=== PATIENT | male | born 1995 | race Caucasian/White ===

== ENCOUNTER 2024-04-14 10:21 | Emergency (ER) | payer SELFPAY ==
[2024-04-14 10:37] VITALS: BP 143/75; PULSE 70; RESP 16; TEMP 36.4; O2SAT 100
--- NOTE | 2024-04-14 11:21 | ED.DENTAL ---
HPI - Dental/Oral General Chief complaint: Dental/Oral Stated complaint: tooth pain Source: patient Mode of arrival: ambulatory History of Present Illness HPI Narrative: 29-year-old male presented for complaint of left upper dental pain and facial swelling for about 2 days. Says the tooth is broken at that site for a while. Has taken ibuprofen without significant improvement. He does not have dentist. Denies nausea, vomiting diarrhea or fever. MD Complaint: tooth pain Related Data Allergies Allergy/AdvReac Type Severity Reaction Status Date / Time AMOXICILLIN Allergy Unknown Uncoded 11/25/02 13:30 NKFA Allergy Unknown Uncoded 11/25/02 13:30 Review of Systems Review of Systems: CONSTITUTIONAL: Denies body aches, fever, chills ENT: Denies rhinorrhea, congestion, sore throat, or otalgia. Reports dental pain CARDIOVASCULAR: Denies chest pain, palpitations RESPIRATORY: Denies cough or dyspnea. SKIN: Denies rash, itching, or wounds. MUSCULOSKELETAL: Denies myalgia. NEUROLOGIC: Denies headache, numbness, tingling, or weakness. PMFSH Comments At time of signature, I have reviewed and agree with nursing past medical, surgical, social and family history unless otherwise noted. Please see nursing chart for further information. There is no relevant family history pertinent to the presenting complaint Exam Narrative: GENERAL: Appears in pain; no acute distress. HEAD: Normocephalic, atraumatic. EYES: EOMI. No redness or drainage. Conjunctivae normal. ENT: Dental pain location of #15, took is broken, surrounding gum is erythematous; mild swelling noted to the face. Mucous membranes pink and moist. TMs normal bilaterally. Throat normal. no dysphagia, odynophagia, dysphonia, or dyspnea. No uvular deviation or soft palate edema. NECK: Normal AROM. No lymphadenopathy. no induration below mandible, no neck pain. CHEST: No respiratory distress. Clear to auscultation. HEART: Regular rate and rhythm. No murmur appreciated. SKIN: Warm, dry, Normal skin turgor. NEURO: No focal deficits. Alert and oriented x3. Gait steady. Course Course Emergency Course: Patient is aware of diagnosis, understands and agrees to treatment plan. Anticipatory guidance given. Patient agrees to follow-up as directed and is aware of reasons to seek care at the emergency department. Portions of this record may have been created with voice recognition software Level of Care: Express Care Visit Vital Signs Vital signs: Vital Signs Temperature 97.5 F L 04/14/24 10:37 Pulse Rate 70 04/14/24 10:37 Respiratory Rate 16 04/14/24 10:37 Blood Pressure 143/75 H 04/14/24 10:37 Pulse Oximetry 100 04/14/24 10:37 Oxygen Delivery Room Air 04/14/24 10:37 Temperature 97.5 F L 04/14/24 10:37 Pulse Rate 70 04/14/24 10:37 Respiratory Rate 16 04/14/24 10:37 Blood Pressure 143/75 H 04/14/24 10:37 Pulse Oximetry 100 04/14/24 10:37 Oxygen Delivery Room Air 04/14/24 10:37 MDM - Dental/Oral MDM Narrative Medical decision making narrative: Patients pain and complaint coupled with physical findings are consistent with dental abscess. There are no focal signs of space occupying lesions that are compromising to the airway; Patient is non-toxic appearing. The floor of the mouth is soft with no signs of Jeffrey's Angina; Patient is without trismus or drooling and able to swallow secretions. Discussed physical exam findings. Advised supportive measures and signs/symptoms to go to the ER. Pt is appropriate for outpt treatment and f/u. Discharge Plan Discharge Clinical Impression: Dental abscess Patient Disposition: Home, Self-Care Condition: Stable Instructions: Antibiotic Form, Dental Abscess (ED) Additional Instructions: Take antibiotic as directed May apply heat or ice to the face Gentle brushing and flossing. Rinse mouth with warm salt water at least 2 times a day. Alternate Tylenol and ibuprofen as needed for pain Follow-up with the dentist as soon as possible--see the list provided go to the ER for worsening symptoms or concerns Prescriptions: New clindamycin HCl [Cleocin HCl] 300 mg capsule 300 mg PO Q8H 10 Days Qty: 30 0RF ibuprofen 800 mg tablet 800 mg PO TID PRN (Reason: pain) Qty: 15 0RF lidocaine HCl [Lidocaine Viscous] 2 % solution 1 applic mucous membrane TID PRN (Reason: pain) Qty: 100 0RF Rx Instructions: apply with cotton swab to site of pain Follow-up/Referrals: PHYSICIAN,MODELING DIRECTOR [Primary Care Provider] - Stand Alone Forms: Work/School Release IP
== END 2024-04-14 11:32 | disposition home or self-care (01) ==
PROVIDERS: Emergency Provider Nurse Practitioner Family
DX: K04.7 Periapical abscess without sinus (principal)
CPT/HCPCS: 99203; G0463

== ENCOUNTER 2024-11-06 10:12 | Emergency (ER) | payer SELFPAY ==
[2024-11-06 10:24] VITALS: BP 134/68; PULSE 77; RESP 16; TEMP 36.4; O2SAT 100
--- NOTE | 2024-11-06 10:58 | ED.URI ---
HPI - URI/Sore Throat General Chief Complaint: Upper Respiratory Infection Stated Complaint: Chest Congestion,Dizziness/Need Dr Note Time Seen by Provider: 11/06/24 10:40 Source: patient and RN notes reviewed Mode of arrival: ambulatory Limitations: no limitations History of Present Illness HPI Narrative: 29-year-old male presents Express Care complaining of upper respiratory symptoms and cough for 1 week. Patient reports having fevers, cough, congestion, headaches, runny nose, and wheezing. Patient says he has been taking DayQuil and NyQuil with some relief but says he is not getting much better. Patient denies feeling short of breath or having any chest pain. Patient said 4 days ago he had an episode of dizziness while working reporting that he felt like he was in motion but surely subsided. Patient denies any lightheadedness, syncope, nausea, vomiting, diarrhea, body aches, chills, or any other symptoms. Patient denies any significant past medical history. Related Data Home Medications ?Medication ?Instructions ?Recorded ?Confirmed ?Last Taken ?Type No Home Medications 11/06/24 11/06/24 Unknown History Allergies Allergy/AdvReac Type Severity Reaction Status Date / Time amoxicillin Allergy Unknown Verified 11/06/24 10:26 Review of Systems Review of Systems: CONSTITUTIONAL: Positive for fevers. Negative for chills, body aches, or sweats. EYES: Denies visual changes, redness, or discharge. ENT: Positive for rhinorrhea, congestion. Negative for sore throat, or otalgia. CARDIOVASCULAR: Denies chest pain, palpitations, or edema. RESPIRATORY: Positive for cough and wheezing. Negative for dyspnea. GASTROINTESTINAL: Denies abdominal pain, nausea, vomiting, or diarrhea. GENITOURINARY: Denies dysuria or hematuria. SKIN: Denies rash or itching. MUSCULOSKELETAL: Denies back pain, joint pain, or myalgia. NEUROLOGIC: Positive for headache. Negative for numbness, or weakness. PSYCHIATRIC: Denies anxiety or depression. All other systems reviewed are negative, except as documented in HPI. PMFSH Comments At the time of my signature, I reviewed and agree with the nursing past medical, surgical, social, and family history. There is no relevant family history pertinent to the patient complaint. Exam Narrative: GENERAL: This is a well-nourished, well-developed adult, in no apparent distress. They are non ill-appearing, nontoxic appearing. Patient is afebrile. HEAD: normocephalic, atraumatic. EYES: Sclera clear/white. Vision is grossly intact. Conjunctiva normal bilaterally. Extraocular movements intact. EARS: External ears normal, auditory canals clear and without drainage, TMs without erythema or perforation. Hearing grossly intact. NOSE: External nose normal with no obvious nasal discharge, nasal turbinates erythematous, no rhinorrhea. THROAT: Mucous membranes moist, posterior pharynx without redness or swelling, or exudate. Uvula is midline. Postnasal drip present. NECK: Neck supple, non-tender without lymphadenopathy, masses or thyromegaly. CARDIOVASCULAR: Regular rate and rhythm without murmurs, gallops, or rubs. RESPIRATORY: End expiratory wheezes heard at the posterior base of the lungs bilaterally and end-expiratory wheezes heard left middle posterior lobe of the lung. Lungs otherwise clear throughout. Breath sounds equal bilaterally. No rales, or rhonchi. Respiratory rate normal, respiratory effort nonlabored, no respiratory distress, no accessory muscle use or retractions. SKIN: warm, Dry, intact with no suspicious lesions or rash, good texture and turgor. NEURO: awake, alert, and oriented to person, place and time. There were no obvious focal neurologic abnormalities. EXTREMITIES: No joint tenderness, effusion, or edema noted. BACK: Nontender without deformity. Course Course Emergency Course: Portions of this record may have been created with voice recognition software Level of Care: Express Care Visit Vital Signs Vital signs: Vital Signs Temperature 97.5 F L 11/06/24 10:24 Pulse Rate 77 11/06/24 10:24 Respiratory Rate 16 11/06/24 10:24 Blood Pressure 134/68 11/06/24 10:24 Pulse Oximetry 100 11/06/24 10:24 Oxygen Delivery Room Air 11/06/24 10:24 Temperature 97.5 F L 11/06/24 10:24 Pulse Rate 77 11/06/24 10:24 Respiratory Rate 16 11/06/24 10:24 Blood Pressure 134/68 11/06/24 10:24 Pulse Oximetry 100 11/06/24 10:24 Oxygen Delivery Room Air 11/06/24 10:24 MDM - URI/Sore Throat MDM Narrative Medical decision making narrative: Patient likely has purulent bronchitis given length of symptoms. Offered patient chest x-ray to exclude pneumonia however patient is self pay and does not want bill for the imaging and declined further imaging. Will treat clinically with prednisone and azithromycin. Also will prescribe albuterol inhaler as needed for wheezing or shortness of breath. Discussed physical exam findings. Advised supportive measures and signs/symptoms to go to the ER. Pt is appropriate for outpt treatment and f/u. Differential Diagnosis Differential diagnosis: Likely sinusitis, viral infection, bronchitis and other (Atypical pneumonia) Discharge Plan Discharge Clinical Impression: Acute purulent bronchitis Patient Disposition: Home Condition: Stable Instructions: Antibiotic Form, Acute Bronchitis (ED) Additional Instructions: Take azithromycin as directed. Take prednisone as directed. Take in the morning with food. Please see albuterol inhaler as needed for wheezing or shortness of breath. Tylenol ibuprofen as needed for pain or fevers. Symptomatic treatment includes: rest, fluids, and increase humidity of the air at home. Follow up with your primary care provider as needed in 1 week Go to the ER for worsening symptoms, shortness of breath, difficulty breathing, chest pain, fevers, nausea vomiting, or any other concerns Patient Language: Montserratian Prescriptions: New azithromycin 250 mg tablet See Rx Instructions .ROUTE .COMPLEX Qty: 6 0RF Rx Instructions: For 250 mg dose pack: take 500 mg today (day 1), then 250 mg for 4 days (days 2-5) prednisone 20 mg tablet 40 mg PO DAILY 5 Days Qty: 10 0RF albuterol sulfate [Ventolin HFA] 90 mcg/actuation HFA aerosol inhaler 2 puff inhalation QID PRN (Reason: shortness of breath or wheezing) Qty: 8.5 0RF No Action No Home Medications Follow-up/Referrals: PHYSICIAN,WOOD TECHNOLOGIST [Primary Care Provider] - Stand Alone Forms: Work/School Release IP Time of Disposition: 10:49
--- OUTSIDE RECORDS SUMMARY | 2024-11-06 11:12 | XMS_ITS | Clinical Summary ---
Author Organization [facility] [employer] Address [address] [place] [address] Care Team Providers Care Special Education Resource Room Teacher Name Role Phone Jake Norman MD Primary Care Provider [phone] Source Comments [employer],non-owned Affiliates and Associated Physician Practices is amultiple site organization consisting of ambulatory clinics and hospital sitesin [place], [place], [place] and [place]. This disclosure is being madepursuant to the Care Everywhere program and may not contain all information available regarding this patient. Last updated 18.G3 Allergies No known active allergies Medications * Be aware that medications may not be up to date on this document. Alwaysverify current medications with the patient. predniSONE (DELTASONE) 20 MG tablet Take 3 a day x 3 days, then 2 a day x 3 days then 1 a day x 5 days 20 tablet 12/14/2018 Active triamcinolone acetonide (KENALOG) 0.1 % cream Apply to affected area 2 times daily 30 g 1 12/14/2018 Active Social History Tobacco Use Types Packs/Day Years Used Date Smoking Tobacco: Former Smokeless Tobacco: Never Sex and Gender Information Value Date Recorded Sex Assigned at Not on file Legal Sex Male 7:02 AM CDT Gender Identity Not on file Sexual Orientation Not on file Last Filed Vital Signs Vital Sign Reading Time Taken Comments Blood Pressure 110/70 12/14/2018 10:21 AM CDT Pulse 45 12/14/2018 10:21 AM CDT Temperature 36.9 C (98.5 F) 12/14/2018 10:21 AM CDT Respiratory Rate 16 12/14/2018 10:21 AM CDT Oxygen Saturation 97% 12/14/2018 10:21 AM CDT Inhaled Oxygen Concentration - - Weight 83.9 kg (185 lb) 12/14/2018 10:21 AM CDT Height 188 cm (6' 2) 12/14/2018 10:21 AM CDT Body Mass Index 23.75 12/14/2018 10:21 AM CDT Plan of Treatment Health Maintenance Due Date Last Done Comments HIV SCREENING 02/19/2008 HEPATITIS C SCREENING 02/14/2011 DTAP/TDAP/TD VACCINES (1 - Tdap) 02/19/2012 HEPATITIS B VACCINE (1 of 3 - 19+ 3-dose series) 02/19/2012 COVID-19 VACCINE (1 - 2023-2 5 season) 2024 DEPRESSION SCREENING 06/04/2024 INFLUENZA VACCINE (Season Ended) 2025 ZOSTER VACCINE (1 of 2) 2043 HIB VACCINE Aged Out No longer eligi ble based on patient's age to complete this topic HPV VACCINE Aged Out No longer eligi ble based on patient's age to complete this topic MENINGOCOCCAL (Group B) VACC INE SHARED DECISION-MAKING Aged Out No longer eligibl e based on patient's age to complete this topic MENINGOCOCCAL GROUPS A/C/Y/W VACCINE Aged Out No longer eligible b ased on patient's age to complete this topic PNEUMOCOCCAL VACCINE Aged Out No long er eligible based on patient's age to complete this topic Insurance AETNA Care Teams Special Education Resource Room Teacher Relationship Specialty Start Date End Date Jake Norman MD PCP - General Family Medicine 04/18/17
== END 2024-11-06 10:50 | disposition home or self-care (01) ==
DX: J20.9 Acute bronchitis, unspecified (principal)
CPT/HCPCS: 99213; G0463

== ENCOUNTER 2024-11-25 12:56 | Emergency (ER) | payer SELFPAY ==
[2024-11-25 13:00] VITALS: BP 131/88; PULSE 52; RESP 18; TEMP 36.6; O2SAT 100
--- NOTE | 2024-11-25 13:25 | ED_ITS ---
HPI - URI/Sore Throat General Chief Complaint: Upper Respiratory Infection Stated Complaint: rib pain Time Seen by Provider: 11/25/24 12:58 Source: patient Mode of arrival: ambulatory Limitations: no limitations History of Present Illness HPI Narrative: Patient is a 29-year-old male who presents to the clinic with left rib pain. He was seen here at [facility] on November 06 and was treated for acute purulent bronchitis with antibiotics. Patient states that his rib pain has came from coughing. Denies any type of injury, radiation of pain, shortness a breath, fever, nausea, vomiting, or diarrhea. Related Data Allergies Allergy/AdvReac Type Severity Reaction Status Date / Time amoxicillin Allergy Unknown Verified 11/25/24 13:08 Review of Systems Review of Systems: CONSTITUTIONAL: Denies body aches, fever, chills EYES: Denies visual changes ENT: Denies rhinorrhea, congestion CARDIOVASCULAR: Denies chest pain, palpitations, or edema. RESPIRATORY: Reports cough. Denies dyspnea. SKIN: Denies rash, itching, or wounds. MUSCULOSKELETAL: Reports left-sided rib pain. NEUROLOGIC: Denies headache, numbness, tingling, or weakness. All systems reviewed & are unremarkable except as noted in HPI and below PMFSH Comments At time of signature, I have reviewed and agree with nursing past medical, surgical, social and family history unless otherwise noted. Please see nursing chart for further information. There is no relevant family history pertinent to the presenting complaint. Exam Narrative: GENERAL: Well-appearing, well-nourished, and in no acute distress. HEAD: Normocephalic, atraumatic. NECK: Supple. RESP: Speaks in full sentences. No respiratory distress. Lung sounds clear. HEART: Regular rate and rhythm. Normal and equal peripheral pulses. MUSC: Left anterior lower rib pain has pain with movement. No edema or ecchymosis, No point tenderness. No open wound. Alignment normal, pulse palpable and equal bilaterally, skin warm, dry, pink. SKIN: Warm, dry, no rash. NEURO: Alert and oriented x3. PSYCH: Normal mood and affect. Course Course Level of Care: [facility] Visit Vital Signs Vital signs: Vital Signs Temperature 97.8 F 11/25/24 13:00 Pulse Rate 52 L 11/25/24 13:00 Respiratory Rate 18 11/25/24 13:00 Blood Pressure 131/88 11/25/24 13:00 Pulse Oximetry 100 11/25/24 13:00 Oxygen Delivery Room Air 11/25/24 13:00 Temperature 97.8 F 11/25/24 13:00 Pulse Rate 52 L 11/25/24 13:00 Respiratory Rate 18 11/25/24 13:00 Blood Pressure 131/88 11/25/24 13:00 Pulse Oximetry 100 11/25/24 13:00 Oxygen Delivery Room Air 11/25/24 13:00 Reviewed. MDM - URI/Sore Throat MDM Narrative Medical decision making narrative: Discussed physical exam findings. Ibuprofen prescription given. Advised supportive measures and signs/symptoms to go to the ER. Pt is appropriate for outpatient treatment and follow up. Differential Diagnosis Differential diagnosis: Likely other ( rib fracture, bronchial injury, pulmonary contusion. ) Critical Care Time Critical Care Time Critical Care Time: No Discharge Plan Discharge Clinical Impression: Acute costochondritis Patient Disposition: Home Condition: Stable Instructions: Antibiotic Form, Costochondritis (DC) Additional Instructions: Take benzonatate as prescribed. Rest. Avoid pushing, pulling, lifting or anything that worsens the symptoms Tylenol every 8 hours as needed You can alternate with ibuprofen. Alternate ice/heat to the site. Lidocaine or salon pas pain patch or use pain cream like icy/hot or biofreeze. Follow up with your primary care provider as needed in 1 week Go to the ER for worsening symptoms or concerns Patient Language: Frisian Prescriptions: New benzonatate 200 mg capsule 200 mg PO BID PRN (Reason: cough) Qty: 20 0RF ibuprofen 800 mg tablet 800 mg PO TID PRN (Reason: pain) Qty: 30 0RF Follow-up/Referrals: PHYSICIAN,LOW HEEL BUILDER [Primary Care Provider] - Stand Alone Forms: Work/School Release IP Time of Disposition: 13:32
== END 2024-11-25 13:35 | disposition home or self-care (01) ==
DX: M94.0 Chondrocostal junction syndrome [Tietze] (principal)
CPT/HCPCS: 99213; G0463

== ENCOUNTER 2025-03-26 12:54 | Emergency (ER) | payer SELFPAY ==
[2025-03-26 13:02] VITALS: BP 156/80; PULSE 68; RESP 18; O2SAT 99
[2025-03-26 13:09] VITALS: TEMP 36.9
--- OUTSIDE RECORDS SUMMARY | 2025-03-26 13:44 | XMS_ITS | Clinical Summary ---
Author Organization [facility] [employer] Address [address] [place] [address] Care Team Providers Care Green End Man Name Role Phone Jake Norman MD Primary Care Provider [phone] Source Comments [employer],non-owned Affiliates and Associated Physician Practices is amultiple site organization consisting of ambulatory clinics and hospital sitesin [place], [place], [place] and [place]. This disclosure is being madepursuant to the Care Everywhere program and may not contain all information available regarding this patient. Last updated 18.Bahu Allergies No known active allergies Medications * [...] of 3 - 19+ 3-dose series) 02/19/2012 HPV VACCINE (1 - 3-dose SCDM series) 02/19/2020 DEPRESSION SCREENING 06/04/2024 COVID-19 VACCINE (1 - 2023-2 5 season) 2025 INFLUENZA VACCINE (#1) 2025 ZOSTER VACCINE (1 of 2) 2043 [...] complete this topic Insurance AETNA Care Teams Green End Man Relationship Specialty Start Date End Date Jake Norman MD PCP - General Family Medicine 04/18/17
--- NOTE | 2025-03-26 14:34 | ED_ITS ---
HPI - Dental/Oral General Chief complaint: Dental/Oral Stated complaint: infection of tooth Time Seen by Provider: 03/26/25 13:04 Source: patient and RN notes reviewed Mode of arrival: ambulatory Limitations: no limitations History of Present Illness HPI Narrative: 30-year-old male patient presents today complaining of left upper dental pain x4 days. States the affected tooth has been broken for 6-12 months. He does not have a dentist. Denies fever, shortness of breath, difficulty swallowing. Currently rates his pain 7/10 and has tried ibuprofen with mild relief. Related Data Allergies Allergy/AdvReac Type Severity Reaction Status Date / Time amoxicillin Allergy Unknown Verified 03/26/25 12:55 PMFSH Comments At time of signature, I have reviewed and agree with nursing past medical, surgical, social and family history unless otherwise noted. Please see nursing chart for further information. There is no relevant family history pertinent to the presenting complaint Exam Narrative: GENERAL: Well-appearing, well-nourished, and in no acute distress. HEAD: Normocephalic, atraumatic. EYES: EOMI. No redness or drainage. Conjunctivae normal. ENT: Mucous membranes pink and moist. Tooth 15 is decayed significantly and black in color. Obvious periapical abscess. No facial swelling noted. No trismus. NECK: Normal AROM. CHEST: No respiratory distress. EXTREMITIES: Normal range of motion. No edema. SKIN: Warm, dry, no rash. Capillary refill normal. Normal skin turgor. NEURO: No focal deficits. Alert and oriented x3. Gait steady. PSYCH: Normal affect. No signs of depression or anxiety. Course Course Level of Care: Express Care Visit Vital Signs Vital signs: Vital Signs Pulse Rate 68 03/26/25 13:02 Respiratory Rate 18 03/26/25 13:02 Blood Pressure 156/80 H 03/26/25 13:02 Pulse Oximetry 99 03/26/25 13:02 Oxygen Delivery Room Air 03/26/25 13:02 Temperature 98.4 F 03/26/25 13:09 Pulse Rate 68 03/26/25 13:02 Respiratory Rate 18 03/26/25 13:02 Blood Pressure 156/80 H 03/26/25 13:02 Pulse Oximetry 99 03/26/25 13:02 Oxygen Delivery Room Air 03/26/25 13:02 Reviewed MDM - Dental/Oral MDM Narrative Medical decision making narrative: 30-year-old male patient presents today complaining of left upper dental pain x4 days. States the affected tooth has been broken for 6-12 months. He does not have a dentist. Denies fever, shortness of breath, difficulty swallowing. Upon exam, patient has significantly decayed tooth no obvious evidence of abscess. Patient is allergic to amoxicillin and will be placed on clindamycin for likely infection. Dental information given. Signs stable. Patient agrees with plan. Anticipatory guidance and ED precautions given. Differential Diagnosis Differential diagnosis: Likely gingival abscess, dental caries, toothache, dental abscess and fracture of tooth Critical Care Time Critical Care Time Critical Care Time: No Discharge Plan Discharge Clinical Impression: Dentalgia Patient Disposition: Home Condition: Stable Instructions: Antibiotic Form, Dental Abscess (ED) Additional Instructions: Please take the clindamycin as prescribed until gone. Continue Tylenol or ibuprofen for pain if needed. Follow-up with a dentist as soon as possible. As discussed, please go to the ER immediately if symptoms worsen to include significant facial swelling, difficulty breathing, difficulty swallowing, fever greater than 100.3. Patient Language: Senegalese Prescriptions: New clindamycin HCl 300 mg capsule 300 mg PO Q6H 10 Days Qty: 40 0RF Follow-up/Referrals: PHYSICIAN,POLITICAL SCIENCE RESEARCH ASSISTANT [Primary Care Provider, Internal Medicine] Time of Disposition: 13:11
== END 2025-03-26 13:17 | disposition home or self-care (01) ==
PROVIDERS: Emergency Provider Nurse Practitioner
DX: K08.89 Other specified disorders of teeth and supporting structures (principal)
CPT/HCPCS: 99213; G0463